=== PATIENT | female | born 1975 | race Caucasian/White ===

== ENCOUNTER 2023-03-28 14:13 | Outpatient (CLI) | payer OTHER, SELFPAY | END 2023-03-28 14:14 | disposition home or self-care (01) | LOC: KYNREF 14:13 | PROVIDERS: PCP Nurse Practitioner Family; Visit Provider Nurse Practitioner Family | DX: R35.0 Frequency of micturition (principal) | CPT/HCPCS: 81015; 87086 ==

== ENCOUNTER 2023-04-04 11:05 | Outpatient (CLI) | payer OTHER, SELFPAY | END 2023-04-04 11:06 | disposition home or self-care (01) | PROVIDERS: PCP Nurse Practitioner Family; Visit Provider Nurse Practitioner Family | DX: Z00.00 Encounter for general adult medical examination without abnormal findings (principal); Z13.6 Encounter for screening for cardiovascular disorders; Z13.0 Encounter for screening for diseases of the blood and blood-forming organs and certain disorders involving the immune mechanism; Z13.29 Encounter for screening for other suspected endocrine disorder; Z13.228 Encounter for screening for other metabolic disorders | CPT/HCPCS: 80053; 80061; 84443; 85025 ==

== ENCOUNTER 2023-07-04 09:58 | Outpatient (CLI) | payer OTHER, SELFPAY ==
--- NOTE | 2023-07-04 10:15 | MM_ITS ---
BILATERAL 3D TOMOSYNTHESIS SCREENING MAMMOGRAM WITH COMPUTER ASSISTED DETECTION INDICATION: SCREENING MAMMOGRAPHY COMPARISON: 12/25/2017 FINDINGS: 3D ML/MLO BILATERAL MAMMOGRAM IMAGES SUBMITTED. BENIGN INTRAMAMMARY LYMPH NODES ARE PRESENT BILATERALLY. NO SUSPICIOUS FINDINGS. IMPRESSION: NO EVIDENCE OF MALIGNANCY. BREAST DENSITY HETEROGENEOUSLY DENSE. RECOMMENDATIONS: ANNUAL BILATERAL SCREENING MAMMOGRAPHY. BI-RADS CATEGORY 2. BENIGN.
== END 2023-07-04 09:59 | disposition home or self-care (01) ==
LOC: MAMMO 09:58
PROVIDERS: PCP Nurse Practitioner Family; Visit Provider Nurse Practitioner Family
DX: Z12.31 Encounter for screening mammogram for malignant neoplasm of breast (principal); R92.2 Inconclusive mammogram
CPT/HCPCS: 77063; 77067

== ENCOUNTER 2024-08-14 10:36 | Outpatient (CLI) | payer BC, SELFPAY | END 2024-08-14 10:37 | disposition home or self-care (01) | PROVIDERS: PCP Nurse Practitioner Family; Visit Provider Nurse Practitioner Family | DX: Z13.228 Encounter for screening for other metabolic disorders (principal); Z13.220 Encounter for screening for lipoid disorders; Z13.0 Encounter for screening for diseases of the blood and blood-forming organs and certain disorders involving the immune mechanism | CPT/HCPCS: 80053; 80061; 85025 ==